=== PATIENT | female | born 1985 | race Caucasian/White ===

== ENCOUNTER → 2016-09-29 | Outpatient (CLI) | payer OTHER ==
--- NOTE | 2016-09-29 11:16 | RAD ---
Indication lumbar pain into left groin. Duration 2 weeks. No known injury. AP and lateral views of the lumbar spine were obtained as well as a coned view targeted to the lumbosacral junction. Vertebral height alignment and disc spaces appear normal. Some modest facet degenerative changes are noted in the mid and lower lumbar spine. An acute bony finding is not seen. IMPRESSION: No acute finding. Mild degenerative change
== END | disposition home or self-care (01) ==
LOC: DXRADRC 10:57
PROVIDERS: ATTEND Nurse Practitioner Family
DX: M54.5 Low back pain (principal); N23 Unspecified renal colic
CPT/HCPCS: 72100

== ENCOUNTER → 2016-10-14 | Outpatient (CLI) | payer BC, OTHER ==
[~2016-10-14] MED LIST: IOHEXOL 300 MG/ML 75 ML VIAL. IV ONE; IOHEXOL 300 MG/ML 75 ML VIAL. ONE
--- NOTE | 2016-10-14 13:55 | RAD ---
CT abdomen pelvis without and with intravenous contrast (CT urogram) History: Hematuria. Comparison: None. Technique: Initially, noncontrast CT of the abdomen and pelvis was performed. After intravenous contrast administration, 75 mL Omnipaque 350, helical CT of the abdomen was performed in the nephrographic phase through the kidneys. Delayed excretory phase helical CT of the abdomen and pelvis was also performed. Rotating 3-D MIPS were created of the excretory phase of the ureters. One or more of the following individualized dose reduction techniques were utilized for the study: Automated exposure control Adjustment of mA and/or kV according to patient's size Use of iterative reconstruction technique. Findings: Images of lower chest demonstrate small bilateral pleural effusions. Noncontrast images demonstrate no evidence of urinary stone or obstruction. Fatty liver disease is seen. Postcontrast images demonstrate symmetric enhancement and excretion of intravenous contrast by the kidneys. Almost the entirety of the left ureter is not opacified by excreted intravenous contrast. Only a small portion portion of the right ureter is opacified by excreted intravenous contrast. There is no secondary CT evidence of ureteral mass or obstruction. Gallbladder is absent. Pancreas, bilateral adrenal glands, and spleen are unremarkable. No bowel obstruction or inflammation is seen. Appendix is without evidence of inflammation. Urinary bladder has unremarkable appearance. Uterus and adnexa are unremarkable. No free air or significant free fluid is seen in the abdomen or pelvis. Impression: 1. No evidence of urinary stone. No evidence of urinary mass. 2. No acute abnormality identified in the abdomen or pelvis. 3. Fatty liver disease. 4. Small bilateral pleural effusions.
== END | disposition home or self-care (01) ==
LOC: CT 08:59
PROVIDERS: ATTEND Nurse Practitioner Family
DX: J90 Pleural effusion, not elsewhere classified (principal); K76.0 Fatty (change of) liver, not elsewhere classified; R31.9 Hematuria, unspecified
CPT/HCPCS: 74178; Q9967

== ENCOUNTER → 2016-11-27 | Outpatient (CLI) | payer OTHER ==
[2016-11-27 13:18] LABS: BASO # 0.1 x10^3/uL (0.0-0.2); BASO % 1 % (0-3); EOS # 0.3 x10^3/uL (0.0-0.7); EOS % 3 % (0-3); HEMATOCRIT 42.1 % (36.0-47.0); HEMOGLOBIN 14.7 g/dL (12.0-15.5); LYMPH # 3.7 x10^3/uL (1.0-4.8); LYMPH % 43 % (24-48); MEAN CORPUSCULAR HEMOGLOBIN 30 pg (25-35); MEAN CORPUSCULAR HGB CONC 35 g/dL (31-37); MEAN CORPUSCULAR VOLUME 85 fL (79-100); MONO # 0.4 x10^3/uL (0.0-1.1); MONO % 5 % (0-9); NEUT # 4.2 x10^3uL (1.8-7.7); NEUT % 49 % (31-73); PLATELET COUNT 342 x10^3/uL (140-400); RED BLOOD COUNT 4.96 x10^6/uL (3.50-5.40); RED CELL DISTRIBUTION WIDTH 13.6 % (11.5-14.5); WHITE BLOOD COUNT 8.7 x10^3/uL (4.0-11.0)
[2016-11-27 13:27] LABS: ALBUMIN 3.8 g/dL (3.4-5.0); ALBUMIN/GLOBULIN RATIO 0.9 (1.0-1.7); CALCIUM 9.2 mg/dL (8.5-10.1); CREATININE 0.8 mg/dL (0.6-1.0); GFR 84.2; POTASSIUM 3.9 mmol/L (3.5-5.1); TOTAL BILIRUBIN 0.5 mg/dL (0.2-1.0); TOTAL PROTEIN 8.2 g/dL (6.4-8.2)
== END | disposition home or self-care (01) ==
LOC: LAB 11:55
PROVIDERS: ATTEND Urology
DX: R31.9 Hematuria, unspecified (principal)
CPT/HCPCS: 36415; 80053; 85027

== ENCOUNTER → 2017-01-08 | Outpatient (CLI) | payer OTHER ==
[~2017-01-08] VITALS: Ht 180.3 cm; Wt 117.9 kg
--- NOTE | 2017-01-08 11:12 | RAD ---
Indication: Epigastric abdominal pain as well as nausea and vomiting for 6 weeks. The patient was administered 2.2 mCi of technetium 99m sulfur colloid labeled to the test meal and imaging over the abdomen was performed. Time of half emptying is mildly prolonged at 103 minutes, with normal values being 30-90 minutes. Impression: Mild delay in gastric emptying.
== END | disposition home or self-care (01) ==
LOC: NM 07:42
PROVIDERS: ATTEND Internal Medicine Gastroenterology
DX: K30 Functional dyspepsia (principal); R11.2 Nausea with vomiting, unspecified
CPT/HCPCS: 78264; A9541

== ENCOUNTER → 2017-01-22 | Outpatient (CLI) | payer OTHER ==
[~2017-01-22] MED LIST changes: +BARIUM SULFATE 60% 355 ML SUSP PO ONE; -IOHEXOL 300 MG/ML 75 ML VIAL. IV ONE; -IOHEXOL 300 MG/ML 75 ML VIAL. ONE
--- NOTE | 2017-01-22 13:02 | RAD ---
Small bowel series, 01/22/2017: History: Epigastric pain The preliminary abdominal image demonstrates a moderate amount of stool scattered throughout the colon. Surgical clips are present in the right upper quadrant suggesting a previous cholecystectomy. Lower pelvic calcifications are probably phleboliths. Overhead and spot films were obtained following oral ingestion of liquid barium. 0.7 minutes of fluoroscopy time was utilized. 4 fluoroscopic spot images were recorded. The small bowel loops are of normal caliber with no evidence of thickening of their folds. There is normal transit of the barium through the small bowel into the colon. The terminal ileum is unremarkable. IMPRESSION: No significant small bowel abnormality is detected.
== END | disposition home or self-care (01) ==
LOC: RAD 08:26
PROVIDERS: ATTEND Internal Medicine Gastroenterology
DX: R10.13 Epigastric pain (principal)
CPT/HCPCS: 74250

== ENCOUNTER → 2017-05-20 | Outpatient (CLI) | payer OTHER ==
[2017-05-20 15:59] LABS: ALBUMIN 3.9 g/dL (3.4-5.0); CALCIUM 9.1 mg/dL (8.5-10.1); CREATININE 0.7 mg/dL (0.6-1.0); DIRECT BILIRUBIN 0.1 mg/dL (0.0-0.2); GFR 97.6; MAGNESIUM 1.8 mg/dL (1.8-2.4); POTASSIUM 3.7 mmol/L (3.5-5.1); TOTAL BILIRUBIN 0.5 mg/dL (0.2-1.0); TOTAL PROTEIN 8.2 g/dL (6.4-8.2)
[2017-05-21 01:07] LABS: LUTEINIZING HORMONE 5.1 mIU/mL (.); PROGESTERONE 9.7 ng/mL (.)
[2017-05-23 11:07] LABS: TESTOSTERONE FREE 0.29 ng/dL (0.10-0.85); TESTOSTERONE TOTAL 13 ng/dL (8-48)
[2017-05-24 13:09] LABS: ESTROGEN LEVEL 317 pg/mL (.)
== END | disposition home or self-care (01) ==
LOC: LAB 14:33
PROVIDERS: ATTEND Nurse Practitioner Family
DX: E28.2 Polycystic ovarian syndrome (principal); E78.5 Hyperlipidemia, unspecified; R25.2 Cramp and spasm
CPT/HCPCS: 36415; 80048; 80061; 80076; 82672; 83001; 83002; 83735; 84144; 84402; 84403

== ENCOUNTER → 2017-08-13 | Outpatient (CLI) | payer OTHER ==
--- NOTE | 2017-08-13 11:15 | RAD ---
3 views lumbar spine 08/13/2017 Indication: Low back pain Comparison study: None Discussion: No evidence of acute fracture or alignment abnormality identified. Vertebral body heights and disc spaces are maintained lumbar spine. Facet joints remain aligned. No evidence of spondylolysis or spondylolisthesis is seen. No acute soft tissue changes are appreciated. Impression: No evidence of acute osseous abnormality involving the lumbar spine
--- NOTE | 2017-08-13 11:39 | RAD ---
Pelvis with right hip, 3 views, 08/13/2017: History: Right hip and back pain No fracture or dislocation is identified. The hip joint spaces are well preserved. The periarticular soft tissues are unremarkable. IMPRESSION: No significant abnormality is detected.
== END | disposition home or self-care (01) ==
LOC: PMG 10:48
PROVIDERS: ATTEND Nurse Practitioner Family
DX: M54.5 Low back pain (principal); M25.551 Pain in right hip
CPT/HCPCS: 72100; 73502

== ENCOUNTER → 2018-02-09 | Outpatient (CLI) | payer OTHER ==
[2018-02-09 17:11] LABS: BASO # 0.1 x10^3/uL (0.0-0.2); BASO % 1 % (0-3); EOS # 0.4 x10^3/uL (0.0-0.7); EOS % 4 % (0-3); HEMATOCRIT 40.4 % (36.0-47.0); HEMOGLOBIN 13.8 g/dL (12.0-15.5); LYMPH # 4.2 x10^3/uL (1.0-4.8); LYMPH % 37 % (24-48); MEAN CORPUSCULAR HEMOGLOBIN 29 pg (25-35); MEAN CORPUSCULAR HGB CONC 34 g/dL (31-37); MEAN CORPUSCULAR VOLUME 84 fL (79-100); MONO # 0.8 x10^3/uL (0.0-1.1); MONO % 7 % (0-9); NEUT # 5.9 x10^3uL (1.8-7.7); NEUT % 52 % (31-73); PLATELET COUNT 394 x10^3/uL (140-400); RED BLOOD COUNT 4.79 x10^6/uL (3.50-5.40); RED CELL DISTRIBUTION WIDTH 14.3 % (11.5-14.5); WHITE BLOOD COUNT 11.3 x10^3/uL (4.0-11.0)
--- NOTE | 2018-02-09 17:59 | RAD ---
OB <14 WKS W/TV: 02/09/2018 4:47 PM INDICATION: 33 years old Female. Spotting with a quantitative beta hCG of 77. COMPARISON: None. TECHNIQUE: Transabdominal and transvaginal sonographic evaluation of the pelvis was performed. Grayscale, color Doppler and spectral waveform analysis was utilized. FINDINGS: UTERUS: Size: 10.1 x 6.6 x 4.4 cm. Masses: None. Endometrium: 20 mm. An IUP is not identified at this time. No gestational sac or yolk sac is visualized. heart tones are not measurable as would be expected with the provided beta hCG. RIGHT OVARY: 4.2 x 4.7 x 2.7 cm. There is a simple cyst measuring 1.9 x 2.1 x 1.9 cm. Arterial and venous waveform identified at the time of imaging. LEFT OVARY: 3.2 x 3.1 x 2.6 cm. Normal in appearance with arterial and venous waveform identified at the time of imaging. FREE FLUID: None. URINARY BLADDER: Unremarkable. IMPRESSION: An IUP is not identified at this time. Most common consideration would be given for early intrauterine . Alternate etiology does include ectopic and failed . Short-term follow-up beta hCG and pelvic ultrasound is recommended. Electronically signed by: Frances Patel MD (02/09/2018 5:56 PM) [facility]
== END | disposition home or self-care (01) ==
LOC: PMG 16:24
PROVIDERS: ATTEND Neuromusculoskeletal Medicine & OMM
DX: O20.0 Threatened abortion (principal); E78.5 Hyperlipidemia, unspecified
CPT/HCPCS: 36415; 76801; 76817; 84702; 85025

== ENCOUNTER → 2018-02-12 | Outpatient (CLI) | payer OTHER | END | disposition home or self-care (01) | LOC: LAB 10:19 | PROVIDERS: ATTEND Neuromusculoskeletal Medicine & OMM | DX: Z32.01 Encounter for pregnancy test, result positive (principal); E78.5 Hyperlipidemia, unspecified | CPT/HCPCS: 36415; 84702 ==

== ENCOUNTER → 2018-02-17 | Outpatient (CLI) | payer OTHER | END | disposition home or self-care (01) | LOC: PMG 13:22 | PROVIDERS: ATTEND Neuromusculoskeletal Medicine & OMM | DX: R31.9 Hematuria, unspecified (principal); E78.5 Hyperlipidemia, unspecified | CPT/HCPCS: 36415; 84702 ==

== ENCOUNTER → 2018-04-29 | Outpatient (CLI) | payer OTHER ==
[2018-04-29 13:52] LABS: BASO # 0.1 x10^3/uL (0.0-0.2); BASO % 1 % (0-3); EOS # 0.5 x10^3/uL (0.0-0.7); EOS % 5 % (0-3); HEMOGLOBIN 15.2 g/dL (12.0-15.5); LYMPH # 4.2 x10^3/uL (1.0-4.8); LYMPH % 41 % (24-48); MEAN CORPUSCULAR HEMOGLOBIN 29 pg (25-35); MEAN CORPUSCULAR HGB CONC 35 g/dL (31-37); MEAN CORPUSCULAR VOLUME 84 fL (79-100); MONO # 0.6 x10^3/uL (0.0-1.1); MONO % 6 % (0-9); NEUT % 48 % (31-73); PLATELET COUNT 351 x10^3/uL (140-400); RED BLOOD COUNT 5.24 x10^6/uL (3.50-5.40); RED CELL DISTRIBUTION WIDTH 13.4 % (11.5-14.5); WHITE BLOOD COUNT 10.3 x10^3/uL (4.0-11.0)
[2018-04-29 14:02] LABS: BILIRUBIN,URINE NEG (NEG); CLARITY,URINE CLOUDY; COLOR,URINE YELLOW; GLUCOSE,URINE NEG (NEG); NITRITE,URINE NEG (NEG); UROBILINOGEN,URINE 0.2 mg/dL (0.2 mg/dL)
[2018-04-29 14:03] LABS: BACTERIA,URINE MANY /HPF (0-FEW); SQUAMOUS EPITHELIAL CELL,UR MANY /LPF
[2018-04-29 14:16] LABS: ALBUMIN 3.5 g/dL (3.4-5.0); ALBUMIN/GLOBULIN RATIO 0.9 (1.0-1.7); ALK PHOS 69 U/L (46-116); ALT (SGPT) 51 U/L (14-59); ANION GAP 12 (6-14); AST (SGOT) 35 U/L (15-37); BLOOD UREA NITROGEN 6 mg/dL (7-20); BUN/CREATININE RATIO 8 (6-20); CALCIUM 8.9 mg/dL (8.5-10.1); CARBON DIOXIDE 22 mmol/L (21-32); CHLORIDE 105 mmol/L (98-107); CREATININE 0.8 mg/dL (0.6-1.0); GFR 83.1; GLUCOSE 96 mg/dL (70-99); POTASSIUM 3.9 mmol/L (3.5-5.1); SODIUM 139 mmol/L (136-145); TOTAL BILIRUBIN 0.4 mg/dL (0.2-1.0); TOTAL PROTEIN 7.5 g/dL (6.4-8.2)
--- NOTE | 2018-04-29 15:20 | RAD ---
CHEST PA LATERAL dated 04/29/2018 1:12 PM. Comparison: 04/12/2013. Clinical Indication: COUGH, SORTNESS OF BREATH, TIMES 2 MONTHS, SMOKER Findings: PA and lateral views of the chest were obtained. Heart and mediastinal contours within normal limits. Lungs are clear without focal consolidation. Vascular interstitium within normal limits. No pleural effusion or pneumothorax. Impression: No acute radiographic abnormality. Electronically signed by: Reddy Fitzpatrick MD (04/29/2018 3:17 PM) [facility]
[2018-04-30 03:07] LABS: HEMOGLOBIN A1C 5.4 % (4.8-5.6)
[2018-04-30 11:13] LABS: THYROID STIM HORMONE (TSH) 2.403 uIU/mL (0.358-3.740)
== END | disposition home or self-care (01) ==
LOC: RAD 13:06
PROVIDERS: ATTEND Neuromusculoskeletal Medicine & OMM
DX: R06.09 Other forms of dyspnea (principal); E78.49 Other hyperlipidemia; F17.200 Nicotine dependence, unspecified, uncomplicated
CPT/HCPCS: 36415; 71046; 80053; 80061; 81001; 82553; 83036; 84443; 85025

== ENCOUNTER 2018-07-04 23:24 | Emergency (ER) | payer OTHER ==
[~2018-07-04] VITALS: Ht 177.8 cm; Wt 118.8 kg
[2018-07-04] MEDS ORDERED: VARE1TAB20 PO (23:58)
[2018-07-05] MEDS ORDERED: ATOR20TA58 PO
[2018-07-05] MEDS ORDERED: METF500T16 PO
[2018-07-05] MEDS ORDERED: birth control
[2018-07-05] MEDS ORDERED: LISI40TA PO
[2018-07-05] MEDS ORDERED: ASPI81TA50 PO
--- NOTE | 2018-07-05 00:19 | PHYS DOC ---
Adult General Chief Complaint Chief Complaint: FLU SYMPTOM HPI HPI 33-year-old female presents with fever, chills and skin sensitivity. The patient has had a mild sore throat today, but her primary complaint is that she has had generalized body aches and chills that have worsened through the day. Patient now has very sensitive skin. She feels like her heart rate is fast. She denies cough or shortness of breath. She denies chest pain, dysuria, urinary frequency, constipation, or diarrhea. Review of Systems Review of Systems Constitutional: Fever and chills [] Eyes: Denies change in visual acuity, redness, or eye pain [] HENT: sore throat [] Respiratory: Denies cough or shortness of breath [] Cardiovascular: No additional information not addressed in HPI [] GI: Denies abdominal pain, nausea, vomiting, bloody stools or diarrhea [] : Denies dysuria or hematuria [] Musculoskeletal: Diffuse body aches[] Integument: Skin sensitivity[] Neurologic: Denies headache, focal weakness or sensory changes [] Endocrine: Denies polyuria or polydipsia [] All other systems were reviewed and found to be within normal limits, except as documented in this note. Current Medications Current Medications Current Medications Medications (Trade) Dose Ordered Sig/Justyna Start Time Stop Time Status Last Admin Dose Admin Sodium Chloride 1,000 ml @ 1,000 mls/hr 1X ONCE 07/05/18 00:30 07/05/18 01:29 Allergies Allergies Allergies Coded Allergies Type Severity Reaction Last Updated Verified piperacillin Allergy Intermediate 07/05/18 Yes tazobactam Allergy Intermediate 07/05/18 Yes vancomycin Allergy Intermediate 07/04/18 Yes Physical Exam Physical Exam Constitutional: Well developed, well nourished, no acute distress, non-toxic appearance. [] HENT: Normocephalic, atraumatic, bilateral external ears normal, oropharynx moist, no oral exudates, nose normal. [] Eyes: PERRLA, EOMI, conjunctiva normal, no discharge. [] Neck: Normal range of motion, no tenderness, supple, no stridor. [] Cardiovascular:Heart rate 130s, regular rhythm, no murmur [] Lungs & Thorax: Decreased breath sounds on the right[] Abdomen: Bowel sounds normal, soft, no tenderness, no masses, no pulsatile masses. [] Skin: Warm, dry, generalized erythema, no rash. [] Back: No tenderness, no CVA tenderness. [] Extremities: No tenderness, no cyanosis, no clubbing, ROM intact, no edema. [] Neurologic: Alert and oriented X 3, normal motor function, normal sensory function, no focal deficits noted. [] Psychologic: Affect normal, judgement normal, mood normal. [] EKG EKG [] Radiology/Procedures Radiology/Procedures [] Impressions: Preliminary interpretation: Chest x-ray no acute findings. Chest PA and lateral 07/05/2018. Reason for exam: Shortness of breath and body aches. Comparison is made with a study of 04/29/2018. No infiltrate or effusion is seen. Heart size and pulmonary vascularity appear normal. IMPRESSION: No acute disease. Electronically signed by: Brain Okeefe Jr., MD (07/05/2018 1:40 AM) [facility]ENTERIn[facility] InternationalIN[facility] DICTATED AND SIGNED BY: BRIAN OKEEFE Jr, MD DATE: 07/05/18 0139 CC: ESHA TREJO DO; PCP,NO CTA chest with and without contrast 07/05/2018. Reason for exam: Shortness of breath and tachycardia. Possible pulmonary embolism. Helical thin section images were made through the chest using an infusion of 100 mL Omnipaque 350. MIP reconstructions were performed. Exposure: One or more of the following individualized dose reduction techniques were utilized for this examination: 1. Automated exposure control 2. Adjustment of the mA and/or kV according to patient size 3. Use of iterative reconstruction technique. FINDINGS: No significant pulmonary parenchymal abnormality is seen. There is probably a trace of pleural fluid on each side. The central airways show no obstruction. There are mildly prominent axillary lymph nodes, although they maintain fatty alexandra. No mediastinal or hilar adenopathy is seen. Evaluation of the pulmonary arterial tree shows only moderate degree of opacification of the pulmonary artery branches. No abnormal filling defect is seen through the central vessels. Evaluation of the smaller peripheral vessels is limited. Images through the upper abdomen show fatty infiltration of the liver. IMPRESSION: No apparent pulmonary embolism. Opacification of the vessels with contrast is relatively limited, and this reduces sensitivity for detecting smaller clots. There are small pleural effusions. Electronically signed by: Brian Okeefe Jr., MD (07/05/2018 2:44 AM) [facility] CENTERInnov[facility] Com[facility] InternationalIN[facility] DICTATED AND SIGNED BY: BRIAN OKEEFE Jr, MD DATE: 07/05/18 0238 CC: ESHA TREJO DO; PCPARTURO Course & Med Decision Making Course & Med Decision Making Pertinent Labs and Imaging studies reviewed. (See chart for details) The patient's labs are unremarkable. Her influenza are negative. We have given the patient 1 L normal saline. She continues to have tachycardia. Given her Toradol and Tylenol for her fever. It has improved. Her heart rate is still 110s. She is on control and she is a smoker. I have ordered a CTA to rule out PE. Her CT CT scan is negative for pulmonary most. She likely has a viral upper respiratory illness leading to her tachycardia and fever. I do not see any bacterial cause requiring antibiotics. She is stable for discharge at this time. [] Dragon Disclaimer Dragon Disclaimer This electronic medical record was generated, in whole or in part, using a voice recognition dictation system. Departure Departure: Referrals: PCPARTURO (PCP) ESHA TREJO DO Jul 05, 2018 00:19
[2018-07-05] MEDS ORDERED: IV NORMAL SALINE 1,000ML 1,000 ML IV ONE ×2 (00:30→01:45)
[2018-07-05 00:38] LABS: BASO % 1 % (0-3); EOS # 0.2 x10^3/uL (0.0-0.7); EOS % 4 % (0-3); HEMATOCRIT 39.8 % (36.0-47.0); LYMPH # 0.6 x10^3/uL (1.0-4.8); LYMPH % 11 % (24-48); MEAN CORPUSCULAR HEMOGLOBIN 30 pg (25-35); MEAN CORPUSCULAR HGB CONC 35 g/dL (31-37); MEAN CORPUSCULAR VOLUME 84 fL (79-100); MONO # 0.5 x10^3/uL (0.0-1.1); MONO % 9 % (0-9); NEUT % 75 % (31-73); PLATELET COUNT 235 x10^3/uL (140-400); RED BLOOD COUNT 4.75 x10^6/uL (3.50-5.40); RED CELL DISTRIBUTION WIDTH 13.5 % (11.5-14.5); WHITE BLOOD COUNT 5.3 x10^3/uL (4.0-11.0)
[2018-07-05 00:53] LABS: ALBUMIN 3.4 g/dL (3.4-5.0); ALBUMIN/GLOBULIN RATIO 0.9 (1.0-1.7); CALCIUM 8.9 mg/dL (8.5-10.1); CREATININE 0.7 mg/dL (0.6-1.0); POTASSIUM 3.6 mmol/L (3.5-5.1); TOTAL BILIRUBIN 0.4 mg/dL (0.2-1.0); TOTAL PROTEIN 7.3 g/dL (6.4-8.2)
[2018-07-05 00:57] LABS: INFLUENZA A PATIENT NEGATIVE (NEGATIVE); INFLUENZA B PATIENT NEGATIVE (NEGATIVE)
[2018-07-05] MEDS ORDERED: KETOROLAC 30 MG/ML VIAL. IV ONE (01:00)
[2018-07-05 01:21] LABS: BILIRUBIN,URINE NEG (NEG); CLARITY,URINE CLEAR; COLOR,URINE YELLOW; GLUCOSE,URINE NEG (NEG)
[2018-07-05 01:22] LABS: BACTERIA,URINE 0 /HPF (0-FEW); NITRITE,URINE NEG (NEG); SQUAMOUS EPITHELIAL CELL,UR OCC /LPF; UROBILINOGEN,URINE 0.2 mg/dL (0.2 mg/dL); WBC,URINE RARE /HPF (0-4)
--- NOTE | 2018-07-05 01:44 | RAD ---
Chest PA and lateral 07/05/2018. Reason for exam: Shortness of breath and body aches. Comparison is made with a study of 04/29/2018. No infiltrate or effusion is seen. Heart size and pulmonary vascularity appear normal. IMPRESSION: No acute disease. Electronically signed by: Kings Crenshaw Jr., MD (07/05/2018 1:40 AM) [facility]
[2018-07-05] MEDS ORDERED: ACETAMINOPHEN 500 MG TABLET PO ONE (02:00)
[2018-07-05] MEDS ORDERED: CONTRAST GIVEN MC PRN (02:30)
[2018-07-05] MEDS ORDERED: IOHEXOL 350 MG/ML 100 ML VIAL. IV ONE (02:30)
--- NOTE | 2018-07-05 02:47 | RAD ---
CTA chest with and without contrast 07/05/2018. Reason for exam: Shortness of breath and tachycardia. Possible pulmonary embolism. Helical thin section images were made through the chest using an infusion of 100 mL Omnipaque 350. MIP reconstructions were performed. Exposure: One or more of the following individualized dose reduction techniques were utilized for this examination: 1. Automated exposure control 2. Adjustment of the mA and/or kV according to patient size 3. Use of iterative reconstruction technique. FINDINGS: No significant pulmonary parenchymal abnormality is seen. There is probably a trace of pleural fluid on each side. The central airways show no obstruction. There are mildly prominent axillary lymph nodes, although they maintain fatty alexandra. No mediastinal or hilar adenopathy is seen. Evaluation of the pulmonary arterial tree shows only moderate degree of opacification of the pulmonary artery branches. No abnormal filling defect is seen through the central vessels. Evaluation of the smaller peripheral vessels is limited. Images through the upper abdomen show fatty infiltration of the liver. IMPRESSION: No apparent pulmonary embolism. Opacification of the vessels with contrast is relatively limited, and this reduces sensitivity for detecting smaller clots. There are small pleural effusions. Electronically signed by: Kings Crenshaw Jr., MD (07/05/2018 2:44 AM) [facility]
[2018-07-05 03:00] VITALS: BP 137/79
== END 2018-07-05 03:00 | disposition home or self-care (01) ==
LOC: ER 23:24
DX: J02.9 Acute pharyngitis, unspecified (principal); M79.10 Myalgia, unspecified site; R00.0 Tachycardia, unspecified; J90 Pleural effusion, not elsewhere classified; Z88.8 Allergy status to other drugs, medicaments and biological substances; Z88.1 Allergy status to other antibiotic agents
CPT/HCPCS: 36415; 71046; 71275; 80053; 81001; 85025; 87804; 96374; 99284; J1885; Q9967; 96361; J7030

== ENCOUNTER 2018-08-19 11:36 | Emergency (ER) | payer OTHER ==
[~2018-08-19] VITALS: Ht 177.8 cm; Wt 113.9 kg
[~2018-08-19 11:36] MED LIST changes: +ASPI81TA50 PO; +ATOR20TA58 PO; -BARIUM SULFATE 60% 355 ML SUSP PO ONE; +LISI40TA PO; +METF500T16 PO; +VARE1TAB20 PO; +birth control
[2018-08-19] MEDS ORDERED: IV NORMAL SALINE 1,000ML 1,000 ML IV SCH (11:57)
--- NOTE | 2018-08-19 12:12 | PHYS DOC ---
Past History Past Medical History: High Cholesterol, Hypertension, Hypothyroid, Ovarian Cyst Past Surgical History: Cholecystectomy, Other Smoking: Non-smoker Alcohol Use: None Drug Use: None Adult General Chief Complaint Chief Complaint: BACK PAIN OR INJURY HPI HPI Patient is a 33 year old female with chronic back pain who presents with complaining of low back pain. Patient states she has had increasing back pain for the last 3 weeks as a constant pain without radiation. Patient states she is currently taking hydrocodone 7.5 mg and Robaxin and ibuprofen without improvement of her pain. Patient complaining of numbness of left-sided abdominal wall and left thigh since yesterday with problem with her urination. Patient states she feels she cannot empty her bladder completely. Patient states she has appointment with a neurosurgeon in few days but currently her neurosurgeon is in vacation. Patient requesting admission at [facility] and seen by another neurosurgeon. Review of Systems Review of Systems Constitutional: Denies fever or chills [] Eyes: Denies change in visual acuity, redness, or eye pain [] HENT: Denies nasal congestion or sore throat [] Respiratory: Denies cough or shortness of breath [] Cardiovascular: No additional information not addressed in HPI [] GI: Denies abdominal pain, nausea, vomiting, bloody stools or diarrhea [] : Denies dysuria or hematuria [] Musculoskeletal: Reports back pain, denies joint pain [] Integument: Denies rash or skin lesions [] Neurologic: Denies headache, focal weakness or sensory changes [] Endocrine: Denies polyuria or polydipsia [] All other systems were reviewed and found to be within normal limits, except as documented in this note. Allergies Allergies Allergies Coded Allergies Type Severity Reaction Last Updated Verified piperacillin Allergy Intermediate 08/19/18 Yes tazobactam Allergy Intermediate 08/19/18 Yes vancomycin Allergy Intermediate 08/19/18 Yes Physical Exam Physical Exam Constitutional: Well developed, well nourished, moderate acute distress, non- toxic appearance. [] HENT: Normocephalic, atraumatic Eyes: PERRLA, EOMI, conjunctiva normal, no discharge. [] Neck: Normal range of motion, no tenderness, supple, no stridor. [] Cardiovascular:Heart rate regular rhythm, no murmur [] Lungs & Thorax: Bilateral breath sounds clear to auscultation [] Abdomen: Bowel sounds normal, soft, no tenderness, no masses, no pulsatile masses. [] Skin: Warm, dry, no erythema, no rash. [] Back: No midline tenderness, left paraspinal tenderness with painful range of motion, no CVA tenderness. [] Extremities: No tenderness, no cyanosis, no clubbing, ROM intact, no edema. [] Neurologic: Alert and oriented X 3, normal motor function, normal sensory function, no focal deficits noted. [] Psychologic: Affect normal, judgement normal, mood normal. [] EKG EKG [] Radiology/Procedures Radiology/Procedures [] Course & Med Decision Making Course & Med Decision Making Pertinent Labs reviewed. (See chart for details) Evaluation of patient in ER showed 33-year-old female patient with history of chronic low back pain that getting worse for the last few weeks. Patient complaining of numbness of abdominal fall and left lower extremity but her exam she did not have anesthesia. Patient complaining of urinary retention. Bladder scan had the stent 300 ML of urine in bladder after IV fluid treatment. Patient requesting transfer to [facility]. , accepted transfer at 1250. Dragon Disclaimer Dragon Disclaimer This electronic medical record was generated, in whole or in part, using a voice recognition dictation system. Departure Departure: Impression: Primary Impression: Intractable back pain Disposition: 02 XFER SHT-TRM HOSP ([facility] at 1251) Admitting Physician: Other (Dr. Gilliam accepted transfer to [facility] at 1250) Condition: IMPROVED Referrals: PCP,UNKNOWN (PCP) ALO GIMENEZ MD Aug 19, 2018 12:12
[2018-08-19 12:26] LABS: BILIRUBIN,URINE NEG (NEG); CLARITY,URINE HAZY; COLOR,URINE YELLOW; GLUCOSE,URINE NEG (NEG); NITRITE,URINE NEG (NEG); UROBILINOGEN,URINE 0.2 mg/dL (0.2 mg/dL)
[2018-08-19 12:28] LABS: BASO # 0.1 x10^3/uL (0.0-0.2); BASO % 1 % (0-3); EOS # 0.5 x10^3/uL (0.0-0.7); EOS % 5 % (0-3); HEMATOCRIT 41.2 % (36.0-47.0); LYMPH # 4.5 x10^3/uL (1.0-4.8); LYMPH % 42 % (24-48); MEAN CORPUSCULAR HEMOGLOBIN 29 pg (25-35); MEAN CORPUSCULAR HGB CONC 34 g/dL (31-37); MEAN CORPUSCULAR VOLUME 87 fL (79-100); MONO # 0.6 x10^3/uL (0.0-1.1); MONO % 5 % (0-9); NEUT % 46 % (31-73); PLATELET COUNT 408 x10^3/uL (140-400); RED BLOOD COUNT 4.76 x10^6/uL (3.50-5.40); RED CELL DISTRIBUTION WIDTH 14.1 % (11.5-14.5); WHITE BLOOD COUNT 10.7 x10^3/uL (4.0-11.0)
[2018-08-19 12:39] LABS: ALBUMIN 3.9 g/dL (3.4-5.0); ALBUMIN/GLOBULIN RATIO 1.1 (1.0-1.7); CALCIUM 9.2 mg/dL (8.5-10.1); CREATININE 0.8 mg/dL (0.6-1.0); GFR 83.1; TOTAL BILIRUBIN 0.6 mg/dL (0.2-1.0); TOTAL PROTEIN 7.5 g/dL (6.4-8.2)
[2018-08-19 13:45] VITALS: BP 112/53
== END 2018-08-19 14:52 | disposition short-term general hospital (02) ==
LOC: ER 11:36
DX: G89.29 Other chronic pain (principal); M54.5 Low back pain; E78.00 Pure hypercholesterolemia, unspecified; I10 Essential (primary) hypertension; E03.9 Hypothyroidism, unspecified; Z90.49 Acquired absence of other specified parts of digestive tract; Z88.8 Allergy status to other drugs, medicaments and biological substances
CPT/HCPCS: 36415; 80053; 81003; 85025; 96374; 96375; 99285; J3010; 96361; J7030

== ENCOUNTER → 2018-12-08 | Outpatient (CLI) | payer OTHER | END | disposition home or self-care (01) | LOC: LAB 09:24 | PROVIDERS: ATTEND Radiology Diagnostic Radiology | DX: Z32.00 Encounter for pregnancy test, result unknown (principal) | CPT/HCPCS: 36415; 84702 ==

== ENCOUNTER → 2019-01-19 | Outpatient (CLI) | payer OTHER ==
[2019-01-19 15:56] LABS: BASO # 0.1 x10^3/uL (0.0-0.2); BASO % 1 % (0-3); EOS # 0.2 x10^3/uL (0.0-0.7); EOS % 2 % (0-3); HEMOGLOBIN 14.6 g/dL (12.0-15.5); LYMPH # 3.5 x10^3/uL (1.0-4.8); LYMPH % 34 % (24-48); MEAN CORPUSCULAR HEMOGLOBIN 28 pg (25-35); MEAN CORPUSCULAR HGB CONC 33 g/dL (31-37); MEAN CORPUSCULAR VOLUME 84 fL (79-100); MONO # 0.7 x10^3/uL (0.0-1.1); MONO % 7 % (0-9); NEUT # 5.8 x10^3uL (1.8-7.7); NEUT % 57 % (31-73); PLATELET COUNT 387 x10^3/uL (140-400); RED BLOOD COUNT 5.26 x10^6/uL (3.50-5.40); WHITE BLOOD COUNT 10.3 x10^3/uL (4.0-11.0)
[2019-01-19 16:04] LABS: ALBUMIN 3.8 g/dL (3.4-5.0); ALBUMIN/GLOBULIN RATIO 0.9 (1.0-1.7); C REACTIVE PROTEIN 5.7 mg/L (0-3.3); CREATININE 0.8 mg/dL (0.6-1.0); GFR 82.6; POTASSIUM 3.8 mmol/L (3.5-5.1); TOTAL BILIRUBIN 0.4 mg/dL (0.2-1.0); TOTAL PROTEIN 8.1 g/dL (6.4-8.2)
[2019-01-19 17:00] LABS: SEDIMENTATION RATE 12 (0-25)
[2019-01-20 04:08] LABS: T3 TOTAL 107 ng/dL (71-180)
[2019-01-20 08:08] LABS: RHEUMATOID FACTOR 12.4 IU/mL (0.0-13.9)
[2019-01-20 13:13] LABS: ANTI-DS DNA 2 IU/mL (0-9); SMITH AB <0.2 AI (0.0-0.9)
[2019-01-20 16:52] LABS: FREE T4 1.06 ng/dL (0.76-1.46); THYROID STIM HORMONE (TSH) 1.849 uIU/mL (0.358-3.740)
[2019-01-23 19:07] LABS: ANA INTERP Negative (.)
== END | disposition home or self-care (01) ==
LOC: PMG 14:34
PROVIDERS: ATTEND Registered Nurse
DX: E06.3 Autoimmune thyroiditis (principal); E78.2 Mixed hyperlipidemia; E55.9 Vitamin D deficiency, unspecified; M25.50 Pain in unspecified joint; M25.60 Stiffness of unspecified joint, not elsewhere classified; R10.9 Unspecified abdominal pain; R53.83 Other fatigue
CPT/HCPCS: 36415; 80053; 80061; 82150; 82306; 83690; 84439; 84443; 84480; 85025; 85651; 86038; 86140; 86235; 86431; 87801

== ENCOUNTER → 2019-04-13 | Outpatient (CLI) | payer OTHER ==
[2019-04-13 15:23] LABS: ALBUMIN 3.7 g/dL (3.4-5.0); C REACTIVE PROTEIN 7.9 mg/L (0-3.3); CALCIUM 8.9 mg/dL (8.5-10.1); CREATININE 0.9 mg/dL (0.6-1.0); GFR 72.1; POTASSIUM 3.8 mmol/L (3.5-5.1); TOTAL BILIRUBIN 0.3 mg/dL (0.2-1.0); TOTAL PROTEIN 7.5 g/dL (6.4-8.2)
[2019-04-14 00:07] LABS: HEMOGLOBIN A1C 6.5 % (4.8-5.6)
== END | disposition home or self-care (01) ==
LOC: PMG 13:52
PROVIDERS: ATTEND Registered Nurse
DX: R79.82 Elevated C-reactive protein (CRP) (principal); R73.01 Impaired fasting glucose; R82.90 Unspecified abnormal findings in urine; E55.9 Vitamin D deficiency, unspecified
CPT/HCPCS: 36415; 80053; 82306; 83036; 86140

== ENCOUNTER → 2019-07-20 | Outpatient (CLI) | payer OTHER ==
[2019-07-20 13:06] LABS: ALBUMIN 3.7 g/dL (3.4-5.0); ALBUMIN/GLOBULIN RATIO 0.9 (1.0-1.7); CALCIUM 9.3 mg/dL (8.5-10.1); CREATININE 0.7 mg/dL (0.6-1.0); GFR 96.4; POTASSIUM 4.2 mmol/L (3.5-5.1); TOTAL BILIRUBIN 0.5 mg/dL (0.2-1.0)
[2019-07-21 00:06] LABS: HEMOGLOBIN A1C 5.7 % (4.8-5.6)
== END | disposition home or self-care (01) ==
LOC: PMG 12:13
PROVIDERS: ATTEND Family Medicine
DX: I10 Essential (primary) hypertension (principal); J32.9 Chronic sinusitis, unspecified; E28.2 Polycystic ovarian syndrome; E03.9 Hypothyroidism, unspecified; E55.9 Vitamin D deficiency, unspecified; K76.0 Fatty (change of) liver, not elsewhere classified; R73.01 Impaired fasting glucose; R74.8 Abnormal levels of other serum enzymes; R31.9 Hematuria, unspecified
CPT/HCPCS: 36415; 80053; 82306; 83036

== ENCOUNTER → 2020-01-11 | Outpatient (CLI) | payer OTHER | LOC: LAB 10:46 | PROVIDERS: ATTEND Physician Assistant | DX: O09.299 Supervision of pregnancy with other poor reproductive or obstetric history, unspecified trimester (principal); N91.2 Amenorrhea, unspecified; Z3A.00 Weeks of gestation of pregnancy not specified | CPT/HCPCS: 36415; 84702 ==

== ENCOUNTER → 2020-04-26 | Outpatient (CLI) | payer OTHER ==
[2020-04-27 13:08] LABS: UR PROTEIN 107.2 mg/dL (Not Estab.)
[2020-04-28 10:07] LABS: TOTAL SERUM CREATININE 0.52 mg/dL (0.57-1.00); TOTAL URINE CREATININE 130.3 mg/dL (Not Estab.)
== END ==
LOC: LAB 10:58
PROVIDERS: ATTEND Obstetrics & Gynecology
DX: O16.9 Unspecified maternal hypertension, unspecified trimester (principal); Z3A.00 Weeks of gestation of pregnancy not specified
CPT/HCPCS: 36415; 82575; 84156

== ENCOUNTER → 2020-05-31 | Outpatient (CLI) | payer OTHER ==
[2020-05-31 15:34] LABS: CLARITY,URINE HAZY; COLOR,URINE YELLOW
[2020-05-31 15:35] LABS: AMORPHOUS SEDIMENT,UR PRESENT /HPF; BACTERIA,URINE MOD /HPF (0-FEW); BILIRUBIN,URINE NEG (NEG); GLUCOSE,URINE NEG (NEG); NITRITE,URINE NEG (NEG); SQUAMOUS EPITHELIAL CELL,UR MANY /LPF; UROBILINOGEN,URINE 0.2 mg/dL (0.2 mg/dL)
== END ==
LOC: LAB 13:11
PROVIDERS: ATTEND Obstetrics & Gynecology
DX: Z34.92 Encounter for supervision of normal pregnancy, unspecified, second trimester (principal); Z3A.00 Weeks of gestation of pregnancy not specified
CPT/HCPCS: 81001; 82575; 84156

== ENCOUNTER → 2020-07-03 | Outpatient (CLI) | payer OTHER ==
[2020-07-04 01:07] LABS: TOTAL SERUM CREATININE 0.55 mg/dL (0.57-1.00); TOTAL URINE CREATININE 114.9 mg/dL (Not Estab.); UR PROTEIN 61.7 mg/dL (Not Estab.)
== END ==
LOC: LAB 14:01
PROVIDERS: ATTEND Obstetrics & Gynecology
DX: O10.919 Unspecified pre-existing hypertension complicating pregnancy, unspecified trimester (principal); N04.9 Nephrotic syndrome with unspecified morphologic changes; Z3A.00 Weeks of gestation of pregnancy not specified
CPT/HCPCS: 36415; 82575; 84156

== ENCOUNTER → 2020-08-05 | Outpatient (CLI) | payer OTHER ==
[~2020-08-05] MED LIST changes: -LISI40TA PO; +LISI40TA6 PO
[2020-08-05 14:12] LABS: BASO % 0 % (0-3); EOS # 0.4 x10^3/uL (0.0-0.7); EOS % 4 % (0-3); HEMATOCRIT 37.2 % (36.0-47.0); HEMOGLOBIN 12.3 g/dL (12.0-15.5); LYMPH # 2.6 x10^3/uL (1.0-4.8); LYMPH % 25 % (24-48); MEAN CORPUSCULAR HEMOGLOBIN 29 pg (25-35); MEAN CORPUSCULAR HGB CONC 33 g/dL (31-37); MEAN CORPUSCULAR VOLUME 86 fL (79-100); MONO # 0.5 x10^3/uL (0.0-1.1); MONO % 4 % (0-9); NEUT # 7.1 x10^3uL (1.8-7.7); NEUT % 67 % (31-73); PLATELET COUNT 325 x10^3/uL (140-400); RED BLOOD COUNT 4.33 x10^6/uL (3.50-5.40); RED CELL DISTRIBUTION WIDTH 14.5 % (11.5-14.5); WHITE BLOOD COUNT 10.6 x10^3/uL (4.0-11.0)
[2020-08-05 14:24] LABS: ALBUMIN 2.7 g/dL (3.4-5.0); ALBUMIN/GLOBULIN RATIO 0.7 (1.0-1.7); CALCIUM 8.9 mg/dL (8.5-10.1); CREATININE 0.8 mg/dL (0.6-1.0); GFR 82.1; POTASSIUM 3.5 mmol/L (3.5-5.1); TOTAL BILIRUBIN 0.3 mg/dL (0.2-1.0); TOTAL PROTEIN 6.8 g/dL (6.4-8.2)
[2020-08-06 01:07] LABS: UR PROTEIN 52.1 mg/dL (Not Estab.)
[2020-08-06 03:07] LABS: TOTAL SERUM CREATININE 0.65 mg/dL (0.57-1.00); TOTAL URINE CREATININE 64.1 mg/dL (Not Estab.)
[2020-08-06 15:10] LABS: FREE T4 1.09 ng/dL (0.76-1.46); THYROID STIM HORMONE (TSH) 1.277 uIU/mL (0.358-3.740)
== END ==
LOC: LAB 12:52
PROVIDERS: ATTEND Obstetrics & Gynecology
DX: Z34.93 Encounter for supervision of normal pregnancy, unspecified, third trimester (principal); N04.9 Nephrotic syndrome with unspecified morphologic changes; E07.9 Disorder of thyroid, unspecified
CPT/HCPCS: 36415; 80053; 82575; 84156; 84439; 84443; 85025

== ENCOUNTER → 2021-01-03 | Outpatient (CLI) | payer OTHER ==
[2021-01-03 10:53] LABS: BASO # 0.1 x10^3/uL (0.0-0.2); BASO % 1 % (0-3); EOS # 0.6 x10^3/uL (0.0-0.7); EOS % 7 % (0-3); HEMATOCRIT 40.5 % (36.0-47.0); HEMOGLOBIN 13.8 g/dL (12.0-15.5); LYMPH # 3.4 x10^3/uL (1.0-4.8); LYMPH % 39 % (24-48); MEAN CORPUSCULAR HEMOGLOBIN 28 pg (25-35); MEAN CORPUSCULAR HGB CONC 34 g/dL (31-37); MEAN CORPUSCULAR VOLUME 82 fL (79-100); MONO # 0.5 x10^3/uL (0.0-1.1); MONO % 6 % (0-9); NEUT # 4.2 x10^3uL (1.8-7.7); NEUT % 48 % (31-73); PLATELET COUNT 328 x10^3/uL (140-400); RED BLOOD COUNT 4.96 x10^6/uL (3.50-5.40); RED CELL DISTRIBUTION WIDTH 14.4 % (11.5-14.5); WHITE BLOOD COUNT 8.8 x10^3/uL (4.0-11.0)
[2021-01-03 10:57] LABS: ALBUMIN 3.6 g/dL (3.4-5.0); CALCIUM 8.7 mg/dL (8.5-10.1); CREATININE 0.8 mg/dL (0.6-1.0); GFR 82.1; POTASSIUM 3.9 mmol/L (3.5-5.1); TOTAL BILIRUBIN 0.4 mg/dL (0.2-1.0); TOTAL PROTEIN 7.3 g/dL (6.4-8.2)
[2021-01-03 18:39] LABS: FREE T4 0.74 ng/dL (0.76-1.46); THYROID STIM HORMONE (TSH) 4.122 uIU/mL (0.358-3.740)
[2021-01-03 23:32] LABS: HEMOGLOBIN A1C 5.5 % (4.8-5.6)
== END ==
LOC: LAB 09:48
PROVIDERS: ATTEND Physician Assistant
DX: R73.02 Impaired glucose tolerance (oral) (principal); E28.2 Polycystic ovarian syndrome; E03.9 Hypothyroidism, unspecified; I10 Essential (primary) hypertension; E55.9 Vitamin D deficiency, unspecified
CPT/HCPCS: 36415; 80053; 80061; 82306; 83036; 84439; 84443; 85025

== ENCOUNTER → 2021-02-04 | Outpatient (CLI) | payer OTHER | LOC: LAB 12:17 | PROVIDERS: ATTEND Internal Medicine Cardiovascular Disease | DX: J02.9 Acute pharyngitis, unspecified (principal); R68.83 Chills (without fever); R51.9 Headache, unspecified; R53.81 Other malaise; R11.0 Nausea; Z20.822 Contact with and (suspected) exposure to COVID-19 | CPT/HCPCS: 87426; U0003 ==